=== PATIENT | female | born 1945 | race Caucasian/White ===

== ENCOUNTER 2020-02-03 10:35 | Emergency (ER) | payer MEDICARE ==
[~2020-02-03] VITALS: Ht 142.2 cm; Wt 61.3 kg
[2020-02-03] MEDS ORDERED: IV NORMAL SALINE 1,000ML 1,000 ML IV SCH (11:04)
[2020-02-03] MEDS ORDERED: CYAN25008 PO (11:10)
[2020-02-03] MEDS ORDERED: PRAV10TA2 PO (11:10)
[2020-02-03] MEDS ORDERED: [UNRECOGNIZED DRUG - CODE] PO (11:10)
[2020-02-03] MEDS ORDERED: OXYC1TAB19 PO (11:10)
[2020-02-03] MEDS ORDERED: LISI-334 PO (11:10)
[2020-02-03] MEDS ORDERED: GABA-586 PO (11:10)
[2020-02-03] MEDS ORDERED: CHOL400C PO (11:10)
[2020-02-03] MEDS ORDERED: ASPI-39 PO (11:10)
--- NOTE | 2020-02-03 11:11 | PHYS DOC ---
Past History Past Medical History: Arthritis, Hypertension Past Surgical History: Appendectomy, Tubal ligation Alcohol Use: None Adult General Chief Complaint Chief Complaint: FLANK PAIN HPI HPI Patient is a 74-year-old female who presents with left flank pain. Onset was several hours ago and woke her from her sleep. Nothing known makes better or worse. Pain described as sharp focal to left flank with occasional radiation to left side of groin. Admits pain waxes and wanes since onset but during episodes, is 7/10 in severity. She has never felt pain like this before, no prior history of kidney stones. Associated symptoms include nausea. Patient denies any fever, COVID-19 contact, chest pain, shortness of breath, urinary sy mptoms, changes in urinary or bowel habits, denies recent constipation, no vaginal or rectal bleeding noted. Review of Systems Review of Systems Fourteen body systems of review of systems have been reviewed. See HPI for per tinent positives and negative responses, other anderson all other systems are negative, non-pertinent or non-contributory Allergies Allergies Allergies Coded Allergies Type Severity Reaction Last Updated Verified Sulfa (Sulfonamide Antibiotics) Allergy Unknown 02/03/20 Yes Physical Exam Physical Exam Constitutional: Well developed, well nourished, in moderate distress due to pain, non-toxic appearance. HENT: Normocephalic, atraumatic, bilateral external ears normal, oropharynx moist, no oral exudates, nose normal. Eyes: PERRLA, EOMI, conjunctiva normal, no discharge. Neck: Normal range of motion, no tenderness, supple, no stridor. Cardiovascular: Heart rate regular, sinus rhythm, no murmurs rubs or gallops Lungs & Thorax: Bilateral breath sounds clear to auscultation Abdomen: Bowel sounds normal, soft, generalized tenderness, voluntary guarding present, no rebound, no masses, no pulsatile masses. Nonsurgical abdomen, no peritoneal signs Skin: Warm, dry, no erythema, no rash. Back: No tenderness or palpable abnormalities present, left CVA tenderness Extremities: No tenderness, no cyanosis, no clubbing, ROM intact, no edema. Neurologic: Alert and oriented X 3, grossly normal motor & sensory function, no focal deficits noted. Psychologic: Affect normal, judgement normal, anxious mood secondary to pain Current Patient Data Vital Signs Vital Signs Date Time Temp Pulse Resp B/P (MAP) Pulse Ox O2 Delivery O2 Flow Rate FiO2 02/03/20 12:44 68 16 122/72 (89) 98 Room Air 02/03/20 10:55 98.4 Lab Results Laboratory Tests Test 02/03/20 11:00 02/03/20 11:16 Urine Collection Type Unknown Urine Color Yellow Urine Clarity Clear Urine pH >8.5 Urine Specific [place] 1.020 Urine Protein Neg (NEG-TRACE) Urine Glucose (UA) Neg mg/dL (NEG) Urine Ketones (Stick) Neg mg/dL (NEG) Urine Blood Trace (NEG) Urine Nitrite Neg (NEG) Urine Bilirubin Neg (NEG) Urine Urobilinogen Dipstick 1.0 mg/dL (0.2 mg/dL) Urine Leukocyte Esterase Neg (NEG) Urine RBC 1-2 /HPF (0-2) Urine WBC 1-4 /HPF (0-4) Urine Squamous Epithelial Cells Mod /LPF Urine Transitional Epithelial Cells Few /LPF Urine Amorphous Sediment Present /HPF Urine Bacteria 0 /HPF (0-FEW) White Blood Count 5.6 x10^3/uL (4.0-11.0) Red Blood Count 4.15 x10^6/uL (3.50-5.40) Hemoglobin 13.2 g/dL (12.0-15.5) Hematocrit 39.2 % (36.0-47.0) Mean Corpuscular Volume 94 fL (79-100) Mean Corpuscular Hemoglobin 32 pg (25-35) Mean Corpuscular Hemoglobin Concent 34 g/dL (31-37) Red Cell Distribution Width 13.2 % (11.5-14.5) Platelet Count 229 x10^3/uL (140-400) Neutrophils (%) (Auto) 74 % (31-73) Lymphocytes (%) (Auto) 20 % (24-48) Monocytes (%) (Auto) 5 % (0-9) Eosinophils (%) (Auto) 1 % (0-3) Basophils (%) (Auto) 1 % (0-3) Neutrophils # (Auto) 4.2 x10^3uL (1.8-7.7) Lymphocytes # (Auto) 1.1 x10^3/uL (1.0-4.8) Monocytes # (Auto) 0.3 x10^3/uL (0.0-1.1) Eosinophils # (Auto) 0.0 x10^3/uL (0.0-0.7) Basophils # (Auto) 0.0 x10^3/uL (0.0-0.2) Sodium Level 139 mmol/L (136-145) Potassium Level 4.2 mmol/L (3.5-5.1) Chloride Level 103 mmol/L (98-107) Carbon Dioxide Level 31 mmol/L (21-32) Anion Gap 5 (6-14) Blood Urea Nitrogen 13 mg/dL (7-20) Creatinine 1.0 mg/dL (0.6-1.0) Estimated GFR (Cockcroft-Gault) 54.2 BUN/Creatinine Ratio 13 (6-20) Glucose Level 127 mg/dL (70-99) Calcium Level 9.2 mg/dL (8.5-10.1) Total Bilirubin 0.7 mg/dL (0.2-1.0) Aspartate Amino Transf (AST/SGOT) 18 U/L (15-37) Alanine Aminotransferase (ALT/SGPT) 19 U/L (14-59) Alkaline Phosphatase 57 U/L (46-116) Troponin I Quantitative < 0.017 ng/mL (0-0.055) Total Protein 7.2 g/dL (6.4-8.2) Albumin 3.8 g/dL (3.4-5.0) Albumin/Globulin Ratio 1.1 (1.0-1.7) Lipase 88 U/L (73-393) EKG EKG EKG ordered and interpreted by myself at 1138 hrs. as normal sinus rhythm at 58 bpm, unremarkable intervals, no axis deviation, no ischemic findings, no STEMI Radiology/Procedures Radiology/Procedures PROCEDURE: CHEST AP ONLY CHEST AP ONLY History: Left flank pain Comparison: None. Findings: Single view of the chest is submitted. There is no infiltrate, pneumothorax, or effusion. Pericardial cardiac silhouette is upper limits of normal. Impression: 1. There is no radiographic evidence of acute cardiopulmonary disease. Electronically signed by: Harvinder Mcclelland MD (02/03/2020 12:38 PM) [id number] PROCEDURE: CT ABD PELV W/ IV CONTRST ONLY CT ABD PELV W/ IV CONTRST ONLY Indication: Left flank pain Technique: Postcontrast CT imaging was performed of the abdomen and pelvis, multiplanar reconstruction images submitted. No oral contrast given. One or more of the following individualized dose reduction techniques were utilized for this examination: 1. Automated exposure control 2. Adjustment of the mA and/or kV according to patient size 3. Use of iterative reconstruction technique. Comparison: None Findings: There is no significant abnormality of the limited visualized lung bases. There is cholelithiasis, somewhat contracted appearance of gallbladder. There is visualization of the pancreatic neck, maximal caliber about 0.2 cm. No significant focal abnormality is identified of the liver, elongated right lobe. There are some splenic granulomas. Both kidneys enhance without hydronephrosis. There is a small hypodense lesion of the mid to inferior right kidney about 0.3 cm otherwise too small to further accurately characterize although density measurements suggestive of cyst. There is some scattered plaque of the abdominal aorta and iliac arteries. There is no adrenal nodularity. Accurate evaluation of the bowel is somewhat limited without oral contrast. There is some fluid distention of the stomach. There is also fluid-filled, dilated proximal small bowel up to about 3.7 cm in caliber with transition of the caliber left upper quadrant of the abdomen at which there is somewhat thick walled small bowel present. There is some relative wall prominence of the gastroduodenal junction and duodenum. There is other fecalization of the small bowel. Appendix is not confidently identified if still present. No free air or free fluid is identified. There is retained stool in the colon, greater of the ascending colon. There is some heterogeneity of the small uterus likely due to underlying masses such as on the right estimated about 3 cm. There is a 1.8 cm likely cyst of the left adnexa. There is grade 1 anterior spondylolisthesis L4-5, minimal posterior subluxation L1 relative to L2. There is mild right lateral subluxation of L3 relative to L4, minimal left lateral subluxation L4 relative to L5. There is advanced degenerative disc disease at L3-4, to lesser degree at L4-5 and L1-2 at which there is vacuum disc disease. There is lumbar facet degenerative change. There is degree of lateral recess stenosis bilaterally greater on the left at L4-5 and on the left at L3-4. IMPRESSION: 1. There is evidence of small bowel obstruction, transition of caliber in the left upper quadrant of the abdomen at which there is small bowel wall thickening as could be related to enteritis. 2. There are likely masses of small uterus, more commonly due to fibroids. There is small left adnexal cyst. 3. There is nonspecific visualization of pancreatic duct. 4. There is cholelithiasis, nonspecific contracted appearance of gallbladder Electronically signed by: Harvinder Mcclelland MD (02/03/2020 12:36 PM) [id number] Course & Med Decision Making Course & Med Decision Making Ambulatory patient seen on immediate ER presentation via POV ABCs grossly unremarkable Comprehensive history and physical exam obtained, subsequent diagnostic studies ordered IV access obtained, 1 L normal saline and 30 mg IV Toradol administered with good relief in patient's symptomology ER work-up reviewed with patient, discussed finding of small bowel obstruction and need for admission for continued medical reassessment and management with consideration for NG tube placement and potential surgical intervention if necessary, patient amenable Discussed case with Dr. Yusuf, transfer physician[facility] at 1335hrs. Received word at 1451 hrs. the patient was accepted at [facility] for admission under the care of Maurilio Yusuf Patient appropriately stabilized for EMS transport to [facility] ER for hold until inpatient bed becomes available, all patient questions and concerns addressed prior to ER departure in stable condition Dragon Disclaimer Dragon Disclaimer This electronic medical record was generated, in whole or in part, using a voice recognition dictation system. Departure Departure: Impression: Primary Impression: SBO (small bowel obstruction) Additional Impressions: HTN (hypertension) Opioid dependence Arthritis Disposition: 05 TRANSFER OTHER ([facility] for small bowel obstruction) Admitting Physician: Other (Dr. Maurilio Yusuf) Condition: STABLE Referrals: MAVIS DAWN MD (PCP) Justification of Admission: Justification of Admission: Justification of Admission Dx: Yes (Small bowel obstruction) Problem Qualifiers MICHELE DAVIES DO Feb 03, 2020 11:11
[2020-02-03] MEDS ORDERED: KETOROLAC 30 MG/ML VIAL. IVP ONE (11:15)
[2020-02-03] MEDS ORDERED: IOHEXOL 300 MG/ML 75 ML VIAL. IV ONE ×2 (11:15→11:30)
[2020-02-03 11:41] LABS: BASO % 1 % (0-3); EOS % 1 % (0-3); HEMATOCRIT 39.2 % (36.0-47.0); HEMOGLOBIN 13.2 g/dL (12.0-15.5); LYMPH # 1.1 x10^3/uL (1.0-4.8); LYMPH % 20 % (24-48); MEAN CORPUSCULAR HEMOGLOBIN 32 pg (25-35); MEAN CORPUSCULAR HGB CONC 34 g/dL (31-37); MEAN CORPUSCULAR VOLUME 94 fL (79-100); MONO # 0.3 x10^3/uL (0.0-1.1); MONO % 5 % (0-9); NEUT # 4.2 x10^3uL (1.8-7.7); NEUT % 74 % (31-73); PLATELET COUNT 229 x10^3/uL (140-400); RED BLOOD COUNT 4.15 x10^6/uL (3.50-5.40); RED CELL DISTRIBUTION WIDTH 13.2 % (11.5-14.5); WHITE BLOOD COUNT 5.6 x10^3/uL (4.0-11.0)
[2020-02-03 11:45] LABS: CALCIUM 9.2 mg/dL (8.5-10.1); GFR 54.2; POTASSIUM 4.2 mmol/L (3.5-5.1)
[2020-02-03 11:51] LABS: ALBUMIN 3.8 g/dL (3.4-5.0); ALBUMIN/GLOBULIN RATIO 1.1 (1.0-1.7); TOTAL BILIRUBIN 0.7 mg/dL (0.2-1.0); TOTAL PROTEIN 7.2 g/dL (6.4-8.2)
[2020-02-03 12:34] LABS: BACTERIA,URINE 0 /HPF (0-FEW); BILIRUBIN,URINE NEG (NEG); CLARITY,URINE CLEAR; COLOR,URINE YELLOW; GLUCOSE,URINE NEG (NEG); NITRITE,URINE NEG (NEG)
[2020-02-03 12:35] LABS: AMORPHOUS SEDIMENT,UR PRESENT /HPF; SQUAMOUS EPITHELIAL CELL,UR MOD /LPF
--- NOTE | 2020-02-03 12:38 | RAD ---
CT ABD PELV W/ IV CONTRST ONLY Indication: Left flank pain Technique: Postcontrast CT imaging was performed of the abdomen and pelvis, multiplanar reconstruction images submitted. No oral contrast given. One or more of the following individualized dose reduction techniques were utilized for this examination: 1. Automated exposure control 2. Adjustment of the mA and/or kV according to patient size 3. Use of iterative reconstruction technique. Comparison: None Findings: There is no significant abnormality of the limited visualized lung bases. There is cholelithiasis, somewhat contracted appearance of gallbladder. There is visualization of the pancreatic neck, maximal caliber about 0.2 cm. No significant focal abnormality is identified of the liver, elongated right lobe. There are some splenic granulomas. Both kidneys enhance without hydronephrosis. There is a small hypodense lesion of the mid to inferior right kidney about 0.3 cm otherwise too small to further accurately characterize although density measurements suggestive of cyst. There is some scattered plaque of the abdominal aorta and iliac arteries. There is no adrenal nodularity. Accurate evaluation of the bowel is somewhat limited without oral contrast. There is some fluid distention of the stomach. There is also fluid-filled, dilated proximal small bowel up to about 3.7 cm in caliber with transition of the caliber left upper quadrant of the abdomen at which there is somewhat thick walled small bowel present. There is some relative wall prominence of the gastroduodenal junction and duodenum. There is other fecalization of the small bowel. Appendix is not confidently identified if still present. No free air or free fluid is identified. There is retained stool in the colon, greater of the ascending colon. There is some heterogeneity of the small uterus likely due to underlying masses such as on the right estimated about 3 cm. There is a 1.8 cm likely cyst of the left adnexa. There is grade 1 anterior spondylolisthesis L4-5, minimal posterior subluxation L1 relative to L2. There is mild right lateral subluxation of L3 relative to L4, minimal left lateral subluxation L4 relative to L5. There is advanced degenerative disc disease at L3-4, to lesser degree at L4-5 and L1-2 at which there is vacuum disc disease. There is lumbar facet degenerative change. There is degree of lateral recess stenosis bilaterally greater on the left at L4-5 and on the left at L3-4. IMPRESSION: 1. There is evidence of small bowel obstruction, transition of caliber in the left upper quadrant of the abdomen at which there is small bowel wall thickening as could be related to enteritis. 2. There are likely masses of small uterus, more commonly due to fibroids. There is small left adnexal cyst. 3. There is nonspecific visualization of pancreatic duct. 4. There is cholelithiasis, nonspecific contracted appearance of gallbladder Electronically signed by: Harvinder Mcclelland MD (02/03/2020 12:36 PM) [id number]
--- NOTE | 2020-02-03 12:41 | RAD ---
CHEST AP ONLY History: Left flank pain Comparison: None. Findings: Single view of the chest is submitted. There is no infiltrate, pneumothorax, or effusion. Pericardial cardiac silhouette is upper limits of normal. Impression: 1. There is no radiographic evidence of acute cardiopulmonary disease. Electronically signed by: Harvinder Mcclelland MD (02/03/2020 12:38 PM) [id number]
--- NOTE | 2020-02-03 13:53 | EKG ---
[address] [address] Test Date: 2020-02-03 Test Time: 11:34:17 Pat Name: SHEYLA MUNGUIA Department: Room: Gender: F [employer] Super[employer]: : 1945 Requested By: MICHELE DAVIES Order Number: [id number] Reading MD: Measurements Intervals [place] Rate: 58 P: 43 [place]: 154 QRS: 23 QRSD: 72 T: 12 QT: 426 QTc: 422 Interpretive Statements SINUS RHYTHM NO SPECIFIC ECG ABNORMALITIES RI6.02 No previous ECG available for comparison
[2020-02-03 15:06] VITALS: BP 124/57
== END 2020-02-03 15:20 | disposition short-term general hospital (02) ==
LOC: ER 10:35
DX: K56.609 Unspecified intestinal obstruction, unspecified as to partial versus complete obstruction (principal); I10 Essential (primary) hypertension; F11.20 Opioid dependence, uncomplicated; M19.90 Unspecified osteoarthritis, unspecified site; Z90.49 Acquired absence of other specified parts of digestive tract; Z98.51 Tubal ligation status; Z88.5 Allergy status to narcotic agent
CPT/HCPCS: 36415; 71045; 74177; 80053; 81001; 83690; 84484; 85025; 93005; 96361; 96374; 99285; J1885; J7030; Q9967

== ENCOUNTER → 2020-09-08 | Outpatient (CLI) | payer MEDICARE ==
[~2020-09-08] MED LIST: ASPI-39 PO; CHOL400C PO; CYAN25008 PO; GABA-586 PO; LISI20TA18 PO; OXYC1TAB19 PO; PRAV10TA2 PO; [UNRECOGNIZED DRUG - CODE] PO
--- NOTE | 2020-09-08 16:09 | RAD ---
PQRS Compliance Statement: One or more of the following individualized dose reduction techniques were utilized for this examinat ion: 1. Automated exposure control 2. Adjustment of the mA and/or kV according to patient size 3. Use of iterative reconstruction technique CT LOW DOSE LUNG SCREEN Clinical Indication: Reason: SMOKER FOR 49 YEARS QUIT 9 YEARS AGO 1PK/DAY / Spl. Instructions: / His tory: Comparison: None. TECHNIQUE: Helical CT imaging of the chest is performed without IV contrast using low-dose technique. Findings: The thyroid is symmetric. There are small calcified mediastinal and left hilar lymph nodes. There is no adenopathy in the chest. The great vessels are normal caliber. There is coronary artery disease. C ardiac size is normal, no pericardial effusion. There is no pleural abnormality. The central airways are patent. Calcified granuloma medial left uppe r lobe. The lungs are otherwise clear. There is cholelithiasis. There is degenerative spondylosis of the thoracic spine. There is mild grade 1 retrolisthesis of L1 o n L2. IMPRESSION: 1. No noncalcified pulmonary nodule is identified. Continue annual screening with low-dose CT in 12 months. 2. Cholelithiasis. 3. Lung RADS category 1. Electronically signed by: Praveen Gonzalez MD (09/08/2020 4:06 PM) [id number]
--- NOTE | 2020-09-09 11:06 | RAD ---
Bone Densitometry History: Postmenopausal COMPARISON: None. Findings: Bone Densitometry was performed with dual photon absorption of the lumbar spine and proximal femurs. Lumbar Spine: Bone density is 0.969 g/cm2 for L1-L4. T-score is -1.7. Z-score is 0.3. Right femoral neck: Bone density is 0.785 g/cm2. T-score is -1.8. Z-score is 0.2. Total right proximal femur: Bone density is 0.757 g/cm2. T-score is -2.0. Z-score is -0.1. IMPRESSION: Osteopenia in the lumbar spine and right hip. World Health Organization definition of osteoporosis and osteopenia for women: normal equal s T score at or above -1.0 standard deviations; osteopenia equals T score between -1.0 and -2.5 stand yusra deviations; osteoporosis equals T score at or below -2.5 standard deviations. Electronically signed by: Camilla Henson MD (09/09/2020 11:04 AM) [id number]
--- NOTE | 2020-09-11 23:01 | RAD ---
DATE: 09/08/2020 EXAM: MAMMO EV SCREENING BILATERAL HISTORY: Screening COMPARISON: 11/06/2018, 11/19/2017, 10/02/2016 This study was interpreted with the benefit of Computerized Aided Detection (CAD). Breast Density: SCATTERED The breast parenchyma shows scattered fibroglandular densities. Breast parenchyma level B. FINDINGS: No suspicious mass, calcification, or architectural distortion. IMPRESSION: No evidence of malignancy. BI-RADS CATEGORY: 1 NEGATIVE RECOMMENDED FOLLOW-UP: 12M 12 MONTH FOLLOW-UP PQRS compliance statement: Patient information was entered into a reminder system with a target due date for the next mammogram. Mammography is a sensitive method for finding small breast cancers, but it does not detect them all and is not a substitute for careful clinical examination. A negative mammogram does not negate a clinically suspicious finding and should not result in delay in biopsying a clinically suspicious abnormality. "Our facility is accredited by the [employer] Mammography Program."
== END ==
LOC: DXRAD 10:26
PROVIDERS: ATTEND Family Medicine
DX: Z12.2 Encounter for screening for malignant neoplasm of respiratory organs (principal); Z12.31 Encounter for screening mammogram for malignant neoplasm of breast; N95.1 Menopausal and female climacteric states; Z87.891 Personal history of nicotine dependence
CPT/HCPCS: 71271; 77063; 77067; 77080

== ENCOUNTER → 2020-11-12 | Outpatient (CLI) | payer MEDICARE ==
--- NOTE | 2020-11-12 14:36 | RAD ---
EXAM: Bilateral lower extremity arterial Doppler. HISTORY: Peripheral vascular disease, smoking history, hypertension. COMPARISON: None. FINDINGS: Grayscale and Doppler analysis of the lower surely arterial systems was performed bilateral ly. On the right, there are triphasic waveforms from the common femoral artery through the distal superfi cial femoral artery. They become biphasic within the popliteal artery and remain biphasic through the trifurcation vessels and the dorsalis pedis artery. On the left, there are triphasic waveforms from the common femoral artery through the popliteal arter y. They become biphasic within the trifurcation vessels. The dorsalis pedis artery is patent with a b iphasic waveform. IMPRESSION: 1. Mildly flow-limiting stenosis within the right distal superficial femoral and the left popliteal a rteries. Electronically signed by: Jason Rodriguez MD (11/12/2020 2:33 PM) [id number]
== END ==
LOC: US 12:48
PROVIDERS: ATTEND Family Medicine
DX: I70.203 Unspecified atherosclerosis of native arteries of extremities, bilateral legs (principal); I10 Essential (primary) hypertension; I70.8 Atherosclerosis of other arteries; Z87.891 Personal history of nicotine dependence
CPT/HCPCS: 93925

== ENCOUNTER → 2021-09-12 | Outpatient (CLI) | payer MEDICARE ==
--- NOTE | 2021-09-12 09:34 | RAD ---
INDICATION: 75 years of age asymptomatic female patient presents for screening mammography. TECHNIQUE: Full field craniocaudal and mediolateral oblique images of both breasts were obtained usi ng digital technique with tomosynthesis and also analyzed with computer-aided detection software. COMPARISON: Prior mammographic imaging dating back to 09/08/2020. BREAST COMPOSITION: Category A: The breasts are predominantly fatty. FINDINGS: Left breast: There is a 7 cm focal asymmetry at the 3 to 4:00 position, anterior to posterior depth j unction, this is better appreciated on the CC projection. Right breast: No suspicious masses, microscopic secretions or architectural distortion is present. The visualized axillae are unremarkable. IMPRESSION: Indeterminate focal asymmetry in the left breast. RECOMMENDATION: Additional evaluation with diagnostic left breast mammogram with preferably 3-D spot compression and followed with targeted left breast ultrasound, if indicated. BIRADS 0: INCOMPLETE - NEED ADDITIONAL IMAGING EVALUATION AND/OR PRIOR MAMMOGRAMS FOR COMPARISON. This study was interpreted with the benefit of Computerized Aided Detection (CAD). Patient information is entered into the reminder system with a target due date for the next screening mammogram. Mammography is the most sensitive method for finding small breast cancers, but it does not detect the m all and is not a substitute for careful clinical examination. A negative mammogram does not negate a clinically suspicious finding and should not result in delay in biopsying a clinically suspicious a bnormality. "Our facility is accredited by the [employer] Mammography Program." Electronically signed by: Nicolas Kent DO (09/12/2021 9:31 AM) [id number]
== END ==
LOC: MAMMO 08:37
PROVIDERS: ATTEND Family Medicine
DX: Z12.31 Encounter for screening mammogram for malignant neoplasm of breast (principal)
CPT/HCPCS: 77063; 77067

== ENCOUNTER → 2021-10-07 | Outpatient (CLI) | payer MEDICARE ==
--- NOTE | 2021-10-07 16:27 | RAD ---
DATE: 09/12/2021 and 09/08/2020 EXAM: MG DIAGNOSTICUNILAT MAMMO HISTORY: Recalled from screening mammogram for focal asymmetry in the left breast. COMPARISON: 09/12/2021 and 09/08/2020 Breast Density: SCATTERED The breast parenchyma shows scattered fibroglandular densities. Breast pare nchyma level B. FINDINGS: There is no suspicious mass, as focal asymmetry, calcifications, or architectural distortio n. There is normal fibroglandular tissue on spot compression true ML views of the left breast. IMPRESSION: No definite persistent mammographic abnormality or evidence of malignancy. Recommend 6 mo nth follow-up left breast mammogram to ensure stability. BI-RADS CATEGORY: 3 PROBABLY BENIGN FINDING(S)-SHORT INTERVAL FOLLOW-UP SUGGESTED RECOMMENDED FOLLOW-UP: 6M 6 MONTH FOLLOW-UP PQRS compliance statement: Patient information was entered into a reminder system with a target due d ate for the next mammogram. Mammography is a sensitive method for finding small breast cancers, but it does not detect them all a nd is not a substitute for careful clinical examination. A negative mammogram does not negate a clin ically suspicious finding and should not result in delay in biopsying a clinically suspicious abnorma lity. "Our facility is accredited by the [employer] Mammography Program." Electronically signed by: Camilla Henson MD (10/07/2021 4:25 PM) [id number]
--- NOTE | 2021-10-08 11:31 | RAD ---
CT LOW DOSE LUNG SCREEN dated 10/07/2021 2:40 PM Indication:Reason: SHREDDER PICKER SMOKER, COUGH / Spl. Instructions: / History: Comparison: CT 09/08/2020. Technique: Helical noncontrast low-dose images were performed. One or more of the following individualized dose reduction techniques were utilized for this examinat ion: 1. Automated exposure control 2. Adjustment of the mA and/or kV according to patient size 3. Use of iterative reconstruction technique Findings: Evidence of prior granulomatous infection is again demonstrated. No significant or suspicious [place] g nodule is seen. The central airways show no abnormality. No enlarged lymph nodes are seen. There is some vera calcification consistent with prior granulomatous infection. Some coronary artery calcifi cation is seen in the LAD and right coronary distributions. Images through the upper abdomen show gallstones in the gallbladder. IMPRESSION: No evidence of significant pulmonary nodule. Follow-up low-dose CT in one year could be performed. Dolores ng rads category 1. Electronically signed by: Varghese Orozco Jr., MD (10/08/2021 11:29 AM) [id number]
== END ==
LOC: MAMMO 13:49
PROVIDERS: ATTEND Family Medicine
DX: Z12.2 Encounter for screening for malignant neoplasm of respiratory organs (principal); R92.8 Other abnormal and inconclusive findings on diagnostic imaging of breast; I25.10 Atherosclerotic heart disease of native coronary artery without angina pectoris; K80.20 Calculus of gallbladder without cholecystitis without obstruction; Z87.891 Personal history of nicotine dependence
CPT/HCPCS: 71271; 77065